=== PATIENT | female | born 1960 | race Caucasian/White ===

== ENCOUNTER 2020-10-15 16:00 | Emergency (ER) | payer OTHER ==
[~2020-10-15] VITALS: Ht 160 cm; Wt 85.0 kg
[2020-10-15] MEDS ORDERED: morphine INJ 10 MG/ML 1ML (SYR OR VIAL) IVP STA (16:02)
[2020-10-15] MEDS ORDERED: ONDANSETRON 4 MG/2 ML (SDV) Z0FRAN IVP ONE (16:15)
[2020-10-15] MEDS ORDERED: KETOROLAC 30 MG/ML VIAL IVP ONE (16:15)
--- NOTE | 2020-10-15 16:17 | ED General ---
General Chief Complaint: Trauma-Non Activation Stated Complaint: FALL Nursing Triage Note: TRIPPED OVER HER DOG AND FELL ONTO HER RIGHT RIBS. Nursing Sepsis Screen: No Definite Risk History of Present Illness Date Seen by Provider: Oct 15, 2020 Time Seen by Provider: 16:14 Initial Comments Patient presenting to emergency department for evaluation of right lateral rib pain sustained after she tripped and fell over her dog and onto her right ribs. She denies any head neck chest abdomen back or extremity pain and she denies any weakness numbness or tingling but she says the pain in her right ribs as intense and is causing her shortness of breath especially when she tries to breathe in. She received 100 mg of fentanyl and says that her pain is minimally improved. She denied taking any blood thinners to me. She is in no obvious distress with normal vital signs. Location Injury Occurred: HER HOME Allergies and Home Medications Allergies Coded Allergies: No Known Drug Allergies (Unverified , 10/15/20) Patient Home Medication List Home Medication List Reviewed: Yes Review of Systems Review of Systems Constitutional: no symptoms reported EENTM: no symptoms reported Respiratory: short of breath Cardiovascular: no symptoms reported Gastrointestinal: no symptoms reported Genitourinary: no symptoms reported Musculoskeletal: no symptoms reported Skin: no symptoms reported Psychiatric/Neurological: No Symptoms Reported All Other Systems Reviewed Negative Unless Noted: Yes Past Khzdkth-Zblpqk-Itwmpe Hx Patient Social History Alcohol Use: Denies Use Recreational Drug Use: No Smoking Status: Current Everyday Smoker Type Used: Cigarettes Recent Foreign Travel: No Contact w/Someone Who Travel: No Recent Infectious Disease Expo: No Physical Abuse: No Sexual Abuse: No Mistreated: No Fear: No Past Medical History Appendectomy, Gallbladder, Hysterectomy Respiratory: No Cardiac: No Neurological: No Genitourinary: No Gastrointestinal: No Musculoskeletal: No Endocrine: No HEENT: No Cancer: No Psychosocial: No Integumentary: No Blood Disorders: No Physical Exam Vital Signs Vital Signs - First Documented 10/15/20 16:04 Temp 36.7 Pulse 78 Resp 18 B/P (MAP) 133/76 (95) Pulse Ox 96 O2 Delivery Room Air Capillary Refill : Less Than 3 Seconds Height, Weight, BMI Height: '" Weight: lbs. oz. kg; 33.00 BMI Method: General Appearance: No Apparent Distress, WD/WN HEENT: PERRL/EOMI Neck: Supple Respiratory: Lungs Clear, No Respiratory Distress, Other (right axillary rib tenderness to palpation through ribs 7-10) Cardiovascular: Regular Rate, Rhythm Gastrointestinal: Non Tender, Soft Back: Normal Inspection Extremity: Normal Capillary Refill Neurologic/Psychiatric: Alert, Oriented x3 Skin: Warm/Dry Progress/Results/Core Measures Suspected Sepsis Recent Fever Within 48 Hours: No Infection Criteria Present: None New/Unexplained Altered Menta: No Sepsis Screen: No Definite Risk SIRS Temperature: Pulse: 78 Respiratory Rate: 18 Blood Pressure 133 /76 Mean: 95 Results/Orders My Orders Orders - CARMITA HINKLE DO Ondansetron Injection (Zofran Injectio (10/15/20 16:15) Morphine Injection (Morphine Injection (10/15/20 16:02) Ketorolac Injection (Toradol Injection) (10/15/20 16:15) Ct Chest Wo (10/15/20 16:02) Medications Given in ED Current Medications Medications Dose Ordered Sig/Tristan Route Start Time Stop Time Status Last Admin Dose Admin Ketorolac Tromethamine 15 mg ONCE ONCE IVP 10/15/20 16:15 10/15/20 16:16 DC 10/15/20 16:11 15 MG Ondansetron HCl 4 mg ONCE ONCE IVP 10/15/20 16:15 10/15/20 16:16 DC 10/15/20 16:10 4 MG Vital Signs/I&O 10/15/20 16:04 Temp 36.7 Pulse 78 Resp 18 B/P (MAP) 133/76 (95) Pulse Ox 96 O2 Delivery Room Air Capillary Refill : Less Than 3 Seconds Blood Pressure Mean: 95 Progress Note : Progress Note Patient with rib pain that is traumatic with no abdominal pain or other areas of pain or trauma so I'll check a chest CT treat pain and reassess. CT shows possible rib fracture but no pneumothorax or other complication. I discussed this result with patient in addition to the liver mass finding on CT and the need for follow-up. Patient still has pain emergency department but has improved significantly and she continues to have normal vital signs so she will be discharged in stable condition. She'll be told to take ibuprofen for pain [place] for breakthrough pain follow primary care provider within 2-3 days for recheck and come back to the ED sooner with worsening pain shortness of breath or other general concerns. Patient aware and agreeable with plan and verbalized understanding of the above instructions. Departure Impression Primary Impression: Right rib fracture Qualified Codes: S22.31XA - Fracture of one rib, right side, initial encounter for closed fracture Additional Impression: Liver mass Disposition: HOME, SELF-CARE Condition: Stable Departure-Patient Inst. Patient Instructions: Rib Fracture (DC) Scripts Hydrocodone/Acetaminophen (Hydrocodone-Acetamin 5-325 mg) 1 Each Tablet 1 EACH PO Q6H PRN for PAIN-SEVERE (8-10), #14 TAB Prov: CARMITA HINKLE DO 10/15/20 Ibuprofen (Ibuprofen) 600 Mg Tablet 600 MG PO Q6H PRN for PAIN-MILD, #20 TAB Prov: CARMITA HINKLE DO 10/15/20 CARMITA HINKLE DO Oct 15, 2020 16:17
--- NOTE | 2020-10-15 16:47 | Diagnostic Imaging Report ---
CT CHEST WO TECHNIQUE: Multiple contiguous axial images were obtained through the chest without the use of intravenous contrast. All CT scans use one or more of the following dose optimizing techniques: automated exposure control, MA and/or KvP adjustment based on patient size and exam type or iterative reconstruction. INDICATION: Right-sided rib pain and shortness of air. COMPARISON: None available. FINDINGS: Lungs and airway: No endoluminal nodule within the trachea. No pulmonary mass or consolidation. There is some dependent groundglass opacities within the bilateral lower lobes favoring atelectasis. There is some bandlike groundglass opacities also in the medial aspect of the right upper lobe that are indeterminate. Pleura: No pleural effusion or pneumothorax. Heart and mediastinum: Thyroid is normal. No supraclavicular or axillary lymphadenopathy. No mediastinal, hilar or juxtaphrenic lymphadenopathy. Heart is normal in size. Upper abdomen: Indeterminate mass in the posterior aspect of the liver measures 6.3 x 4.8 cm. Cholecystectomy. Left adrenal adenoma. Musculoskeletal: No lytic or blastic skeletal lesion that would suggest neoplastic process. Possible nondisplaced fracture in the right 5th rib. IMPRESSION: 1. Potential nondisplaced fracture in the anterior aspect of the right 5th rib. No pneumothorax. 2. Indeterminate mass within the liver has a differential that would include both malignant and benign neoplasm. Therefore, CT abdomen without and with IV contrast should be performed in the near future for further characterization. 3. Groundglass opacities in the medial aspect of the right upper lobe could be due to atelectasis. However, infection is a possible etiology as well. Dictated by: Dictated on workstation # [id number]
[2020-10-15] MEDS ORDERED: ACHD5005 PO (17:14)
[2020-10-15] MEDS ORDERED: IBUP-1773 PO (17:14)
[2020-10-15] MEDS ORDERED: oxyCODONE/APAP 5/325MG (PERCOCET 5) TABLET PO ONE (17:15)
[2020-10-15 17:29] VITALS: BP 118/68
--- NOTE | 2020-10-15 17:30 | NUR ---
Pt wanted us to contact her son and tell him to have her other son call and talked to the dr about her "possible diagnosis". This Rn explained that further testing as outpatient would need to be done to determine a definite diagnosis. The pt rudely looked at Michelle and said "I used to do your job ya know" and made a rude gesture with her arm. The pt stated its fine we have cancer in our family we have been through this before you could call them and tell them. This RN again explained that until further studies were performed outpatient, we would not know if the mass in her liver is benign or malignant so therefore I did not feel comfortable calling someone and telling them she had cancer.
== END 2020-10-15 17:28 | disposition home or self-care (01) ==
LOC: ER FS 16:01
DX: S22.41XA Multiple fractures of ribs, right side, initial encounter for closed fracture (principal); R16.0 Hepatomegaly, not elsewhere classified; F17.210 Nicotine dependence, cigarettes, uncomplicated; W01.0XXA Fall on same level from slipping, tripping and stumbling without subsequent striking against object, initial encounter
CPT/HCPCS: 71250